=== PATIENT | male | born 1950 | race Caucasian/White ===

== ENCOUNTER 2017-12-29 14:51 | Inpatient (IN) | payer MEDICARE, BC ==
[2017-12-29 15:57] LABS: ADD MAN DIFF? NO
[2017-12-29 16:01] LABS: WHITE BLOOD COUNT 14.3 10^3/ul (4.8-10.8)
[2017-12-29 16:01] LABS: BASOPHILS % 0.2 % (0.0-2.0); EOSINOPHILS % 0.3 % (0.0-7.0); HEMATOCRIT 29.8 % (42.0-52.0); HEMOGLOBIN 10.1 g/dl (14.0-18.0); LYMPHOCYTES # 0.4 10^3/ul (0.8-2.9); LYMPHOCYTES % 3.1 % (15.0-51.0); MEAN CORPUSCULAR HEMOGLOBIN 29.2 pg (29.0-33.0); MEAN CORPUSCULAR HGB CONC 33.9 g/dl (32.0-37.0); MEAN CORPUSCULAR VOLUME 86.1 fl (82.0-101.0); MONOCYTE # 0.8 10^3/ul (0.3-0.9); MONOCYTES % 5.2 % (0.0-11.0); NEUTROPHILS % 90.6 % (39.0-77.0); PLATELET COUNT 217 10^3/UL (140-415); RED BLOOD COUNT 3.46 10^6/ul (4.70-6.10); RED CELL DISTRIBUTION WIDTH 13.9 % (11.5-14.5)
[2017-12-29] MEDS: SODIUM CHLORIDE 0.9% 1L BAG IV* (16:04)
[2017-12-29 16:23] LABS: INR 1.13; PROTIME 14.7 Sec (11.9-14.9); PT RATIO 1.1
[2017-12-29 16:24] LABS: PARTIAL THROMBOPLASTIN TIME 40.1 Sec (25.0-35.0)
[2017-12-29 16:25] LABS: LACTIC ACID 1.4 mmol/L (0.5-2.0)
[2017-12-29 16:29] LABS: ALANINE AMINOTRANSFERASE 21 IU/L (13-69); ALBUMIN 3.7 g/dl (3.3-4.9); ALBUMIN/GLOBULIN RATIO 1.05; ALKALINE PHOSPHATASE 72 IU/L (42-121); AMYLASE 60 U/L (11-123); ANION GAP 23 (8-16); ASPARTATE AMINO TRANSFERASE 14 IU/L (15-46); BLOOD UREA NITROGEN 59 mg/dl (7-20); CALCIUM 9.1 mg/dl (8.4-10.2); CARBON DIOXIDE 19 mmol/L (21-31); CHLORIDE 92 mmol/L (97-110); CREATININE 4.69 mg/dl (0.61-1.24); GLUCOSE 109 mg/dl (70-220); LIPASE 31 U/L (23-300); POTASSIUM 5.2 mmol/L (3.5-5.1); SODIUM 129 mmol/L (135-144); TOTAL PROTEIN 7.2 g/dl (6.1-8.1)
[2017-12-29 16:37] LABS: B-TYPE NATRIURETIC PEPTIDE 1240 PG/ML (0-125); TROPONIN-I 0.014 ng/ml (0.00-0.12)
[2017-12-29 16:44] LABS: ADD UMIC YES; UR ASCORBIC ACID NEGATIVE (NEGATIVE); UR BACTERIA FEW /HPF (NONE SEEN); UR BILIRUBIN (Dip) NEGATIVE (NEGATIVE); UR BLOOD (Dip) NEGATIVE (NEGATIVE); UR CLARITY TURBID (CLEAR); UR COLOR YELLOW (YELLOW); UR GLUCOSE (Dip) NEGATIVE (NEGATIVE); UR KETONES (Dip) NEGATIVE (NEGATIVE); UR LEUKOCYTE ESTERASE (Dip) 1+ Leu/ul (NEGATIVE); UR NITRITE (Dip) POSITIVE (NEGATIVE); UR RBC 4 /HPF (0-5); UR SPECIFIC GRAVITY (Dip) 1.015 (1.003-1.030); UR TOTAL PROTEIN (Dip) 3+ mg/dl (NEGATIVE); UR UROBILINOGEN (Dip) NEGATIVE (NEGATIVE); UR WBC 1 /HPF (0-5)
[2017-12-29] MEDS: ACETAMINOPHEN 500 MG TAB PO (17:27)
[2017-12-29] MEDS: CA CHLORIDE 10% 10 ML SYRINGE IV (17:30)
[2017-12-29] MEDS ORDERED: ONDANSETRON 4 MG INJ IV (17:30)
[2017-12-29] MEDS: PIPER-TAZO 3.375 GM IV (PMX) 100 ML IVPB (17:31)
[2017-12-29] MEDS: NA BICARBONATE 8.4% 50 ML SYG IV (17:32)
[2017-12-29] MEDS: FUROSEMIDE 40 MG INJ IV (17:32)
[2017-12-29] MEDS: VANCOMYCIN 1 GM (PMX) 250 ML IVPB (18:22)
[2017-12-29] MEDS: ALBUTEROL 0.5% (NEB) 2.5 MG/0.5 ML AMP INH (18:52)
[2017-12-29] MEDS: IBUPROFEN 800 MG TAB PO ×2 (19:52→20:27)
[2017-12-29 21:45] LABS: LACTIC ACID 1.3 mmol/L (0.5-2.0)
[2017-12-29] MEDS ORDERED: PROMETHAZINE (1.25 MG/ML) 5 ML CUP PO (22:30)
[2017-12-29] MEDS ORDERED: MEROPENEM 1 GM/50ML(PMX) 50 ML IVPB (22:30)
[2017-12-29] MEDS ORDERED: ACETAMINOPHEN 325 MG TAB PO (22:30)
[2017-12-29] MEDS ORDERED: CEPASTAT LOZENGE MM (22:30)
[2017-12-29] MEDS: SOD CHLORIDE 0.9% 1,000 ML IV (22:58)
[2017-12-29] MEDS: MEROPENEM 500MG/50 ML (PMX) 50 ML IVPB (22:58)
[2017-12-29] MEDS: LEVALBUTEROL (NEB) 1.25 MG/0.5 ML AMP HHN (23:05)
[2017-12-30] MEDS: LEVALBUTEROL (NEB) 1.25 MG/0.5 ML AMP HHN ×4 (02:33→21:00)
[2017-12-30 07:34] LABS: ADD MAN DIFF? NO
[2017-12-30 07:52] LABS: WHITE BLOOD COUNT 11.8 10^3/ul (4.8-10.8)
[2017-12-30 07:52] LABS: ABNORMAL IP MESSAGE 1; BASOPHILS % 0.2 % (0.0-2.0); EOSINOPHILS # 0.2 10^3/ul (0.0-0.5); EOSINOPHILS % 1.4 % (0.0-7.0); HEMATOCRIT 28.3 % (42.0-52.0); HEMOGLOBIN 9.6 g/dl (14.0-18.0); LYMPHOCYTES # 0.5 10^3/ul (0.8-2.9); LYMPHOCYTES % 4.1 % (15.0-51.0); MEAN CORPUSCULAR HEMOGLOBIN 29.6 pg (29.0-33.0); MEAN CORPUSCULAR HGB CONC 33.9 g/dl (32.0-37.0); MEAN CORPUSCULAR VOLUME 87.3 fl (82.0-101.0); MEAN PLATELET VOLUME 12.8 fl (7.4-10.4); MONOCYTE # 0.7 10^3/ul (0.3-0.9); NEUTROPHIL # 10.4 10^3/ul (1.6-7.5); NEUTROPHILS % 87.8 % (39.0-77.0); PLATELET COUNT 183 10^3/UL (140-415); POSITIVE DIFF @See below; RED BLOOD COUNT 3.24 10^6/ul (4.70-6.10); RED CELL DISTRIBUTION WIDTH 13.9 % (11.5-14.5)
[2017-12-30 08:06] LABS: ANION GAP 18 (8-16); BLOOD UREA NITROGEN 55 mg/dl (7-20); CALCIUM 9.6 mg/dl (8.4-10.2); CARBON DIOXIDE 23 mmol/L (21-31); CHLORIDE 104 mmol/L (97-110); CREATININE 2.97 mg/dl (0.61-1.24); GLUCOSE 92 mg/dl (70-220); SODIUM 141 mmol/L (135-144)
[2017-12-30] MEDS: ACETAMINOPHEN 325 MG TAB PO (09:16)
[2017-12-30] MEDS: ENOXAPARIN 30 MG/0.3 ML SYG SC (09:20)
[2017-12-30] MEDS ORDERED: hydrALAzine 20 MG INJ IV (12:30)
[2017-12-30] MEDS: SOD CHLORIDE 0.9% 1,000 ML IV (13:44)
[2017-12-30] MEDS: PROMETHAZINE/CODEINE 5ML CUP PO ×3 (13:47→23:46)
[2017-12-30 15:51] LABS: ADD UMIC YES; UR ASCORBIC ACID 40 mg/dL (NEGATIVE); UR BILIRUBIN (Dip) NEGATIVE (NEGATIVE); UR BLOOD (Dip) 2+ mg/dL (NEGATIVE); UR CLARITY CLOUDY (CLEAR); UR COLOR RED (YELLOW); UR GLUCOSE (Dip) NEGATIVE (NEGATIVE); UR KETONES (Dip) NEGATIVE (NEGATIVE); UR LEUKOCYTE ESTERASE (Dip) 2+ Leu/ul (NEGATIVE); UR MUCUS FEW /HPF (NONE SEEN); UR NITRITE (Dip) NEGATIVE (NEGATIVE); UR RBC > 182 /HPF (0-5); UR SPECIFIC GRAVITY (Dip) 1.014 (1.003-1.030); UR TOTAL PROTEIN (Dip) 2+ mg/dl (NEGATIVE); UR UROBILINOGEN (Dip) NEGATIVE (NEGATIVE); UR WBC > 182 /HPF (0-5)
[2017-12-30 16:00] LABS: SODIUM,URINE RANDOM 33 mmol/L (30-90)
[2017-12-30 16:05] LABS: CREATININE,URINE RANDOM 67.21 mg/dl (20-370)
[2017-12-30] MEDS: MEROPENEM 500MG/50 ML (PMX) 50 ML IVPB (23:04)
[2017-12-31] MEDS: SOD CHLORIDE 0.9% 1,000 ML IV ×2 (01:10→07:54)
[2017-12-31] MEDS: LEVALBUTEROL (NEB) 1.25 MG/0.5 ML AMP HHN ×4 (02:09→20:00)
[2017-12-31] MEDS: ALPRAZOLAM 0.25 MG TAB PO ×2 (04:26→22:59)
[2017-12-31] MEDS: HYDROCODONE/APAP (5/325) TAB PO ×2 (04:32→16:28)
[2017-12-31] MEDS: DILTIAZEM 25 MG INJ IV ×3 (05:33→07:54)
[2017-12-31] MEDS: PROMETHAZINE/CODEINE 5ML CUP PO ×2 (06:49→12:40)
[2017-12-31] MEDS: ENOXAPARIN 30 MG/0.3 ML SYG SC (08:00)
[2017-12-31 08:18] LABS: ADD MAN DIFF? NO
[2017-12-31 08:21] LABS: WHITE BLOOD COUNT 8.3 10^3/ul (4.8-10.8)
[2017-12-31 08:21] LABS: BASOPHILS % 0.5 % (0.0-2.0); EOSINOPHILS # 0.5 10^3/ul (0.0-0.5); EOSINOPHILS % 6.2 % (0.0-7.0); HEMATOCRIT 28.8 % (42.0-52.0); HEMOGLOBIN 9.9 g/dl (14.0-18.0); LYMPHOCYTES # 1.1 10^3/ul (0.8-2.9); LYMPHOCYTES % 13.3 % (15.0-51.0); MEAN CORPUSCULAR HEMOGLOBIN 29.5 pg (29.0-33.0); MEAN CORPUSCULAR HGB CONC 34.4 g/dl (32.0-37.0); MEAN CORPUSCULAR VOLUME 85.7 fl (82.0-101.0); MEAN PLATELET VOLUME 12.1 fl (7.4-10.4); MONOCYTE # 0.6 10^3/ul (0.3-0.9); MONOCYTES % 7.3 % (0.0-11.0); NEUTROPHILS % 72.2 % (39.0-77.0); PLATELET COUNT 225 10^3/UL (140-415); RED BLOOD COUNT 3.36 10^6/ul (4.70-6.10); RED CELL DISTRIBUTION WIDTH 13.8 % (11.5-14.5)
[2017-12-31 08:47] LABS: ANION GAP 16 (8-16); BLOOD UREA NITROGEN 21 mg/dl (7-20); CALCIUM 9.6 mg/dl (8.4-10.2); CARBON DIOXIDE 25 mmol/L (21-31); CHLORIDE 110 mmol/L (97-110); CREATININE 0.76 mg/dl (0.61-1.24); GLUCOSE 97 mg/dl (70-220); MAGNESIUM 1.8 mg/dl (1.7-2.5); PHOSPHORUS 2.7 mg/dl (2.5-4.9); POTASSIUM 3.2 mmol/L (3.5-5.1); SODIUM 148 mmol/L (135-144)
[2017-12-31] MEDS: DIGOXIN 500 MCG INJ IV (10:47)
[2017-12-31] MEDS: PIPER-TAZO 3.375 GM IV (PMX) 100 ML IVPB ×3 (11:16→23:46)
[2017-12-31] MEDS: POTASSIUM CHLORIDE (SR) 20 MEQ TAB PO (11:59)
[2017-12-31] MEDS: MAGNESIUM SULFATE 2 GM/50 ML 50 ML IVPB (12:41)
[2017-12-31] MEDS: ARTIFICIAL TEARS 15 ML OPH BOTH EYES ×3 (13:53→21:49)
[2017-12-31] MEDS: AMIODARONE 900 MG in DEXTROSE 5% 482 ML IV (14:16)
[2017-12-31 17:31] LABS: CREATININE, RANDOM URINE 84 mg/dL (20-370); MICROALBUMIN 87.3 mg/dL; MICROALBUMIN/CREATININE RATIO 1039 (<30)
[2017-12-31] MEDS: APIXABAN 5 MG TABLET PO (21:49)
[2017-12-31] MEDS: POTASSIUM CHLORIDE 20 MEQ POWDER FOR ORAL SOLN PO (21:50)
[2018-01-01] MEDS: PROMETHAZINE/CODEINE 5ML CUP PO (01:46)
[2018-01-01] MEDS: LEVALBUTEROL (NEB) 1.25 MG/0.5 ML AMP HHN ×4 (01:58→20:32)
[2018-01-01] MEDS: SOD CHLORIDE 0.9% 1,000 ML IV (03:04)
[2018-01-01] MEDS: PIPER-TAZO 3.375 GM IV (PMX) 100 ML IVPB ×4 (06:23→23:29)
[2018-01-01 08:31] LABS: ADD MAN DIFF? NO
[2018-01-01 08:38] LABS: BASOPHILS % 0.4 % (0.0-2.0); EOSINOPHILS # 0.9 10^3/ul (0.0-0.5); HEMATOCRIT 27.9 % (42.0-52.0); HEMOGLOBIN 9.2 g/dl (14.0-18.0); LYMPHOCYTES % 11.7 % (15.0-51.0); MEAN CORPUSCULAR HEMOGLOBIN 29.3 pg (29.0-33.0); MEAN CORPUSCULAR VOLUME 88.9 fl (82.0-101.0); MEAN PLATELET VOLUME 12.2 fl (7.4-10.4); MONOCYTE # 0.4 10^3/ul (0.3-0.9); MONOCYTES % 5.3 % (0.0-11.0); NEUTROPHIL # 5.9 10^3/ul (1.6-7.5); NEUTROPHILS % 71.2 % (39.0-77.0); PLATELET COUNT 233 10^3/UL (140-415); RED BLOOD COUNT 3.14 10^6/ul (4.70-6.10); RED CELL DISTRIBUTION WIDTH 14.1 % (11.5-14.5)
[2018-01-01 08:38] LABS: WHITE BLOOD COUNT 8.2 10^3/ul (4.8-10.8)
[2018-01-01 08:55] LABS: ANION GAP 16 (8-16); BLOOD UREA NITROGEN 14 mg/dl (7-20); CALCIUM 9.4 mg/dl (8.4-10.2); CARBON DIOXIDE 24 mmol/L (21-31); CHLORIDE 110 mmol/L (97-110); CREATININE 0.62 mg/dl (0.61-1.24); GLUCOSE 97 mg/dl (70-220); MAGNESIUM 1.9 mg/dl (1.7-2.5); PHOSPHORUS 3.6 mg/dl (2.5-4.9); POTASSIUM 3.9 mmol/L (3.5-5.1); SODIUM 146 mmol/L (135-144)
[2018-01-01] MEDS: APIXABAN 5 MG TABLET PO ×2 (09:02→21:28)
[2018-01-01] MEDS: ARTIFICIAL TEARS 15 ML OPH BOTH EYES ×5 (09:02→23:27)
[2018-01-01] MEDS: SOD CHLORIDE 0.45% 1,000 ML IV (09:03)
[2018-01-01] MEDS ORDERED: DEXTROSE 5% 1,000 ML IV (09:30)
[2018-01-01] MEDS: hydrALAzine 20 MG INJ IV ×2 (12:15→23:44)
[2018-01-01] MEDS: HYDROCODONE/APAP (5/325) TAB PO (16:17)
[2018-01-01] MEDS ORDERED: POLYETHYLENE GLYCOL 17 GM PACKET PO (17:30)
[2018-01-01] MEDS: DOCUSATE SODIUM 100 MG CAP PO (21:28)
[2018-01-01] MEDS: AMIODARONE 200 MG TAB PO (21:33)
[2018-01-01] MEDS: ALPRAZOLAM 0.25 MG TAB PO (21:38)
[2018-01-01] MEDS ORDERED: VANCOMYCIN IV PER PHARMACY XX (22:00)
[2018-01-01] MEDS: VANCOMYCIN 1.75 GM in SOD CHLORIDE 0.9% 500 ML IVPB (23:26)
[2018-01-02] MEDS: SOD CHLORIDE 0.45% 1,000 ML IV ×2 (01:40→17:23)
[2018-01-02] MEDS: LEVALBUTEROL (NEB) 1.25 MG/0.5 ML AMP HHN ×4 (02:19→20:23)
[2018-01-02] MEDS: DIGOXIN 500 MCG INJ IV (03:18)
[2018-01-02] MEDS: MAGNESIUM SULFATE 2 GM/50 ML 50 ML IVPB (03:19)
[2018-01-02] MEDS: PIPER-TAZO 3.375 GM IV (PMX) 100 ML IVPB ×3 (06:19→17:23)
[2018-01-02 08:25] LABS: ADD MAN DIFF? NO
[2018-01-02 08:27] LABS: BASOPHIL # 0.1 10^3/ul (0.0-0.1); BASOPHILS % 0.5 % (0.0-2.0); EOSINOPHILS # 0.7 10^3/ul (0.0-0.5); EOSINOPHILS % 6.9 % (0.0-7.0); HEMOGLOBIN 10.4 g/dl (14.0-18.0); LYMPHOCYTES # 1.1 10^3/ul (0.8-2.9); LYMPHOCYTES % 11.2 % (15.0-51.0); MEAN CORPUSCULAR HEMOGLOBIN 29.5 pg (29.0-33.0); MEAN CORPUSCULAR HGB CONC 33.5 g/dl (32.0-37.0); MEAN CORPUSCULAR VOLUME 88.1 fl (82.0-101.0); MEAN PLATELET VOLUME 11.8 fl (7.4-10.4); MONOCYTE # 0.7 10^3/ul (0.3-0.9); NEUTROPHIL # 7.3 10^3/ul (1.6-7.5); NEUTROPHILS % 73.7 % (39.0-77.0); PLATELET COUNT 301 10^3/UL (140-415); RED BLOOD COUNT 3.52 10^6/ul (4.70-6.10)
[2018-01-02 08:27] LABS: WHITE BLOOD COUNT 9.9 10^3/ul (4.8-10.8)
[2018-01-02] MEDS: DOCUSATE SODIUM 100 MG CAP PO ×2 (09:05→21:14)
[2018-01-02] MEDS: ARTIFICIAL TEARS 15 ML OPH BOTH EYES ×4 (09:05→21:10)
[2018-01-02] MEDS: AMIODARONE 200 MG TAB PO ×2 (09:06→21:16)
[2018-01-02] MEDS: APIXABAN 5 MG TABLET PO ×2 (09:06→21:15)
[2018-01-02] MEDS: VANCOMYCIN 1.25 GM in SOD CHLORIDE 0.9% 250 ML IVPB ×2 (09:09→21:14)
[2018-01-02 09:10] LABS: ANION GAP 17 (8-16); BLOOD UREA NITROGEN 6 mg/dl (7-20); CALCIUM 9.3 mg/dl (8.4-10.2); CARBON DIOXIDE 23 mmol/L (21-31); CHLORIDE 108 mmol/L (97-110); CREATININE 0.56 mg/dl (0.61-1.24); GLUCOSE 93 mg/dl (70-220); MAGNESIUM 2.2 mg/dl (1.7-2.5); PHOSPHORUS 3.9 mg/dl (2.5-4.9); POTASSIUM 3.7 mmol/L (3.5-5.1); SODIUM 144 mmol/L (135-144)
[2018-01-02] MEDS: METOPROLOL 25 MG TAB PO ×3 (17:23→23:07)
[2018-01-02] MEDS: CIPROFLOXACIN 400MG/D5W 200 ML IVPB (21:14)
[2018-01-02] MEDS: CEFTRIAXONE 1 GM/50 ML (PMX) 50 ML IVPB (23:15)
[2018-01-03] MEDS: LEVALBUTEROL (NEB) 1.25 MG/0.5 ML AMP HHN ×4 (01:26→20:10)
[2018-01-03] MEDS: AMIODARONE 200 MG TAB PO ×2 (08:12→22:52)
[2018-01-03] MEDS: METOPROLOL 25 MG TAB PO (08:13)
[2018-01-03] MEDS: APIXABAN 5 MG TABLET PO ×2 (08:13→22:52)
[2018-01-03] MEDS: CIPROFLOXACIN 400MG/D5W 200 ML IVPB ×2 (08:14→22:50)
[2018-01-03] MEDS: DOCUSATE SODIUM 100 MG CAP PO ×2 (08:18→22:51)
[2018-01-03] MEDS: ARTIFICIAL TEARS 15 ML OPH BOTH EYES ×4 (08:19→22:52)
[2018-01-03 08:56] LABS: ANION GAP 16 (8-16); BLOOD UREA NITROGEN 5 mg/dl (7-20); CALCIUM 9.3 mg/dl (8.4-10.2); CARBON DIOXIDE 23 mmol/L (21-31); CHLORIDE 108 mmol/L (97-110); CREATININE 0.61 mg/dl (0.61-1.24); GLUCOSE 91 mg/dl (70-220); MAGNESIUM 1.7 mg/dl (1.7-2.5); PHOSPHORUS 4.2 mg/dl (2.5-4.9); POTASSIUM 3.5 mmol/L (3.5-5.1); SODIUM 143 mmol/L (135-144)
[2018-01-03 09:07] LABS: VANCOMYCIN,TROUGH 19.8 ug/ml (10.0-20.0)
[2018-01-03] MEDS: SOD CHLORIDE 0.45% 1,000 ML IV ×2 (12:55→22:50)
[2018-01-03] MEDS: hydrALAzine 20 MG INJ IV (12:57)
[2018-01-03] MEDS: POTASSIUM CHLORIDE 20 MEQ POWDER FOR ORAL SOLN PO (13:33)
[2018-01-03] MEDS: MAGNESIUM SULFATE 2 GM/50 ML 50 ML IVPB (13:33)
[2018-01-03] MEDS: HYDROCODONE/APAP (5/325) TAB PO (18:14)
[2018-01-03] MEDS ORDERED: METOPROLOL 25 MG TAB PO (21:00)
[2018-01-03] MEDS: METOPROLOL 50 MG TAB PO (22:51)
[2018-01-04] MEDS: CEFTRIAXONE 1 GM/50 ML (PMX) 50 ML IVPB ×2 (00:41→22:46)
[2018-01-04] MEDS: LEVALBUTEROL (NEB) 1.25 MG/0.5 ML AMP HHN (02:17)
[2018-01-04] MEDS: HYDROCODONE/APAP (5/325) TAB PO ×2 (05:04→14:52)
[2018-01-04] MEDS: hydrALAzine 20 MG INJ IV (05:04)
[2018-01-04 06:44] LABS: ADD MAN DIFF? NO
[2018-01-04 06:47] LABS: WHITE BLOOD COUNT 10.5 10^3/ul (4.8-10.8)
[2018-01-04 06:47] LABS: BASOPHILS % 0.3 % (0.0-2.0); EOSINOPHILS # 0.5 10^3/ul (0.0-0.5); EOSINOPHILS % 4.4 % (0.0-7.0); HEMATOCRIT 29.7 % (42.0-52.0); HEMOGLOBIN 9.8 g/dl (14.0-18.0); LYMPHOCYTES # 1.3 10^3/ul (0.8-2.9); LYMPHOCYTES % 12.3 % (15.0-51.0); MEAN CORPUSCULAR HEMOGLOBIN 29.3 pg (29.0-33.0); MEAN CORPUSCULAR VOLUME 88.7 fl (82.0-101.0); MEAN PLATELET VOLUME 11.4 fl (7.4-10.4); MONOCYTE # 0.7 10^3/ul (0.3-0.9); MONOCYTES % 6.3 % (0.0-11.0); NEUTROPHIL # 7.9 10^3/ul (1.6-7.5); NEUTROPHILS % 75.8 % (39.0-77.0); PLATELET COUNT 326 10^3/UL (140-415); RED BLOOD COUNT 3.35 10^6/ul (4.70-6.10)
[2018-01-04 07:19] LABS: ANION GAP 17 (8-16); BLOOD UREA NITROGEN 5 mg/dl (7-20); CALCIUM 9.3 mg/dl (8.4-10.2); CARBON DIOXIDE 23 mmol/L (21-31); CHLORIDE 108 mmol/L (97-110); CREATININE 0.58 mg/dl (0.61-1.24); GLUCOSE 96 mg/dl (70-220); POTASSIUM 3.7 mmol/L (3.5-5.1); SODIUM 144 mmol/L (135-144)
[2018-01-04 08:28] LABS: MAGNESIUM 1.9 mg/dl (1.7-2.5)
[2018-01-04] MEDS: LEVALBUTEROL (NEB) 0.63 MG/3 ML AMP HHN ×3 (08:28→19:12)
[2018-01-04] MEDS: DOCUSATE SODIUM 100 MG CAP PO ×2 (09:59→21:22)
[2018-01-04] MEDS: METOPROLOL 50 MG TAB PO ×2 (10:00→21:23)
[2018-01-04] MEDS: AMIODARONE 200 MG TAB PO ×2 (10:00→21:23)
[2018-01-04] MEDS: APIXABAN 5 MG TABLET PO ×2 (10:01→21:23)
[2018-01-04] MEDS: ARTIFICIAL TEARS 15 ML OPH BOTH EYES ×4 (10:01→21:21)
[2018-01-04] MEDS: CIPROFLOXACIN 400MG/D5W 200 ML IVPB ×2 (10:01→21:18)
[2018-01-04] MEDS: ALPRAZOLAM 0.25 MG TAB PO (14:53)
[2018-01-04] MEDS: MAGNESIUM SULFATE 2 GM/50 ML 50 ML IVPB (16:54)
[2018-01-04] MEDS: POTASSIUM CHLORIDE 20 MEQ POWDER FOR ORAL SOLN PO (16:55)
[2018-01-05] MEDS: LEVALBUTEROL (NEB) 0.63 MG/3 ML AMP HHN ×4 (01:05→20:06)
[2018-01-05 07:55] LABS: CHOLESTEROL 137 mg/dl (100-200)
[2018-01-05 07:55] LABS: CHOL/HDL RATIO 5.4 RATIO; HDL CHOLESTEROL 25 mg/dl (30-78); LDL CHOLESTEROL,CALCULATED 84 mg/dl; TRIGLYCERIDES 142 mg/dl (0-149)
[2018-01-05] MEDS: DOCUSATE SODIUM 100 MG CAP PO ×3 (09:00→20:44)
[2018-01-05] MEDS: DULOXETINE 30 MG CAP DR PO (09:08)
[2018-01-05] MEDS: ARTIFICIAL TEARS 15 ML OPH BOTH EYES ×4 (09:08→21:01)
[2018-01-05] MEDS: CIPROFLOXACIN 400MG/D5W 200 ML IVPB ×2 (09:08→20:44)
[2018-01-05] MEDS: APIXABAN 5 MG TABLET PO ×2 (09:08→20:44)
[2018-01-05] MEDS: AMIODARONE 200 MG TAB PO (09:09)
[2018-01-05] MEDS: METOPROLOL 50 MG TAB PO ×2 (09:09→20:45)
[2018-01-05] MEDS: HYDROCODONE/APAP (5/325) TAB PO ×2 (09:11→17:21)
[2018-01-05] MEDS: CEFTRIAXONE 1 GM/50 ML (PMX) 50 ML IVPB (23:41)
[2018-01-06] MEDS: LEVALBUTEROL (NEB) 0.63 MG/3 ML AMP HHN ×4 (02:00→20:12)
[2018-01-06] MEDS: ARTIFICIAL TEARS 15 ML OPH BOTH EYES ×4 (08:04→22:01)
[2018-01-06] MEDS: DOCUSATE SODIUM 100 MG CAP PO ×2 (08:05→22:00)
[2018-01-06] MEDS: DULOXETINE 30 MG CAP DR PO (08:05)
[2018-01-06] MEDS: APIXABAN 5 MG TABLET PO ×2 (08:05→22:08)
[2018-01-06] MEDS: METOPROLOL 50 MG TAB PO ×2 (08:06→22:07)
[2018-01-06] MEDS: AMIODARONE 200 MG TAB PO (08:06)
[2018-01-06] MEDS: hydrALAzine 20 MG INJ IV ×2 (08:06→22:08)
[2018-01-06] MEDS: CIPROFLOXACIN 400MG/D5W 200 ML IVPB ×2 (08:06→22:00)
[2018-01-06] MEDS: HYDROCODONE/APAP (5/325) TAB PO (10:31)
[2018-01-06 12:34] LABS: ANION GAP 18 (8-16); BLOOD UREA NITROGEN 8 mg/dl (7-20); CARBON DIOXIDE 19 mmol/L (21-31); CHLORIDE 107 mmol/L (97-110); CREATININE 0.59 mg/dl (0.61-1.24); GLUCOSE 99 mg/dl (70-220); POTASSIUM 4.1 mmol/L (3.5-5.1); SODIUM 140 mmol/L (135-144)
[2018-01-06] MEDS: ATORVASTATIN 10 MG TAB PO (22:00)
[2018-01-06] MEDS: CEFTRIAXONE 1 GM/50 ML (PMX) 50 ML IVPB (23:45)
[2018-01-07] MEDS: LEVALBUTEROL (NEB) 0.63 MG/3 ML AMP HHN ×3 (02:09→14:00)
[2018-01-07] MEDS: HYDROCODONE/APAP (5/325) TAB PO ×2 (05:40→15:40)
[2018-01-07] MEDS: DULOXETINE 30 MG CAP DR PO (09:21)
[2018-01-07] MEDS: AMIODARONE 200 MG TAB PO (09:22)
[2018-01-07] MEDS: APIXABAN 5 MG TABLET PO (09:22)
[2018-01-07] MEDS: CIPROFLOXACIN 400MG/D5W 200 ML IVPB (09:22)
[2018-01-07] MEDS: METOPROLOL 50 MG TAB PO (09:23)
[2018-01-07] MEDS: DOCUSATE SODIUM 100 MG CAP PO (09:23)
[2018-01-07] MEDS: ARTIFICIAL TEARS 15 ML OPH BOTH EYES ×3 (09:23→17:46)
[2018-01-07] MEDS: CIPROFLOXACIN 500 MG TAB PO (17:46)
== END 2018-01-07 19:54 | DRG 871 ==
LOC: TEL 17:22 → E/R 14:51 → TEL 23:58 → E/R 14:51
DX: A41.9 Sepsis, unspecified organism (principal); G82.50 Quadriplegia, unspecified; J18.9 Pneumonia, unspecified organism; N17.9 Acute kidney failure, unspecified; E87.2 Acidosis; J96.10 Chronic respiratory failure, unspecified whether with hypoxia or hypercapnia; E87.1 Hypo-osmolality and hyponatremia; N39.0 Urinary tract infection, site not specified; E87.0 Hyperosmolality and hypernatremia; R47.01 Aphasia; G45.9 Transient cerebral ischemic attack, unspecified; J20.9 Acute bronchitis, unspecified; I48.0 Paroxysmal atrial fibrillation; I10 Essential (primary) hypertension; L89.629 Pressure ulcer of left heel, unspecified stage; F41.9 Anxiety disorder, unspecified; F32.9 Major depressive disorder, single episode, unspecified; Z93.0 Tracheostomy status
CPT/HCPCS: 70551; 71045; 76775; 80048; 80053; 80061; 80202; 81001; 81003; 82043; 82150; 83605; 83690; 83735; 83880; 84100; 84155; 84300; 84443; 84484; 85025; 85610; 85730; 87040; 87070; 87081; 87086; 87400; 89190; 89220; 93005; 93306; 93880; 93971; 94640; 94644; 94664; 95819; 96365; 96366; 96367; 96368; 96375; 97110; 97163; 97530; 99291-25

== ENCOUNTER 2018-10-30 20:23 | Inpatient (IN) | payer MEDICARE, BC ==
[2018-10-30] MEDS: CEFEPIME 2GM/50 ML (PMX) 50 ML IVPB (21:15)
[2018-10-30] MEDS: SODIUM CHLORIDE 0.9% 1L BAG IV* (21:15)
[2018-10-30 21:29] LABS: ADD MAN DIFF? NO
[2018-10-30 21:33] LABS: WHITE BLOOD COUNT 15.7 10^3/ul (4.8-10.8)
[2018-10-30 21:33] LABS: BASOPHIL # 0.1 10^3/ul (0.0-0.1); BASOPHILS % 0.4 % (0.0-2.0); EOSINOPHILS % 6.5 % (0.0-7.0); HEMATOCRIT 35.6 % (42.0-52.0); HEMOGLOBIN 11.7 g/dl (14.0-18.0); LYMPHOCYTES # 1.9 10^3/ul (0.8-2.9); LYMPHOCYTES % 12.1 % (15.0-51.0); MEAN CORPUSCULAR HEMOGLOBIN 28.3 pg (29.0-33.0); MEAN CORPUSCULAR HGB CONC 32.9 g/dl (32.0-37.0); MEAN CORPUSCULAR VOLUME 86.2 fl (82.0-101.0); MEAN PLATELET VOLUME 11.7 fl (7.4-10.4); MONOCYTE # 1.2 10^3/ul (0.3-0.9); MONOCYTES % 7.7 % (0.0-11.0); NEUTROPHIL # 11.4 10^3/ul (1.6-7.5); NEUTROPHILS % 72.8 % (39.0-77.0); PLATELET COUNT 341 10^3/UL (140-415); RED BLOOD COUNT 4.13 10^6/ul (4.70-6.10); RED CELL DISTRIBUTION WIDTH 14.1 % (11.5-14.5)
[2018-10-30 21:49] LABS: PROTIME 12.3 Sec (11.9-14.9)
[2018-10-30 21:50] LABS: PARTIAL THROMBOPLASTIN TIME 34.6 Sec (23.0-35.0)
[2018-10-30 21:53] LABS: ALANINE AMINOTRANSFERASE 10 IU/L (13-69); ALBUMIN 4.1 g/dl (3.3-4.9); ALBUMIN/GLOBULIN RATIO 1.17; ALKALINE PHOSPHATASE 77 IU/L (42-121); ANION GAP 17 (5-13); ASPARTATE AMINO TRANSFERASE 18 IU/L (15-46); BLOOD UREA NITROGEN 15 mg/dl (7-20); CALCIUM 9.5 mg/dl (8.4-10.2); CARBON DIOXIDE 27 mmol/L (21-31); CHLORIDE 92 mmol/L (97-110); CREATININE 0.69 mg/dl (0.61-1.24); Estimated GFR > 60 mL/min (>60); GLUCOSE 83 mg/dl (70-220); POTASSIUM 4.1 mmol/L (3.5-5.1); SODIUM 136 mmol/L (135-144); TOTAL PROTEIN 7.6 g/dl (6.1-8.1)
[2018-10-30 22:04] LABS: TROPONIN-I 0.036 ng/ml (0.000-0.120)
[2018-10-30] MEDS: SOD CHLORIDE 0.9% 1,000 ML IV ×2 (22:52→22:58)
[2018-10-30] MEDS ORDERED: ACETAMINOPHEN 325 MG TAB PO (23:00)
[2018-10-30] MEDS ORDERED: morphine 2 MG INJ IV (23:00)
[2018-10-30] MEDS ORDERED: NACL 0.9% 3 ML SYG IV (23:00)
[2018-10-30] MEDS ORDERED: ONDANSETRON 4 MG INJ IV (23:00)
[2018-10-31 06:06] LABS: ADD MAN DIFF? NO
[2018-10-31 06:15] LABS: BASOPHILS % 0.3 % (0.0-2.0); EOSINOPHILS # 0.4 10^3/ul (0.0-0.5); EOSINOPHILS % 3.2 % (0.0-7.0); HEMATOCRIT 30.8 % (42.0-52.0); HEMOGLOBIN 10.1 g/dl (14.0-18.0); LYMPHOCYTES # 1.1 10^3/ul (0.8-2.9); LYMPHOCYTES % 8.3 % (15.0-51.0); MEAN CORPUSCULAR HEMOGLOBIN 28.3 pg (29.0-33.0); MEAN CORPUSCULAR HGB CONC 32.8 g/dl (32.0-37.0); MEAN CORPUSCULAR VOLUME 86.3 fl (82.0-101.0); MEAN PLATELET VOLUME 12.5 fl (7.4-10.4); MONOCYTE # 0.8 10^3/ul (0.3-0.9); MONOCYTES % 6.1 % (0.0-11.0); NEUTROPHIL # 10.6 10^3/ul (1.6-7.5); NEUTROPHILS % 81.7 % (39.0-77.0); POSITIVE DIFF @See below; RED BLOOD COUNT 3.57 10^6/ul (4.70-6.10); RED CELL DISTRIBUTION WIDTH 13.9 % (11.5-14.5)
[2018-10-31 06:21] LABS: PLATELET COUNT 188 10^3/UL (140-415)
[2018-10-31 06:54] LABS: ALANINE AMINOTRANSFERASE 10 IU/L (13-69); ALBUMIN 3.2 g/dl (3.3-4.9); ALBUMIN/GLOBULIN RATIO 1.06; ALKALINE PHOSPHATASE 60 IU/L (42-121); ANION GAP 15 (5-13); ASPARTATE AMINO TRANSFERASE 20 IU/L (15-46); BLOOD UREA NITROGEN 15 mg/dl (7-20); CALCIUM 8.5 mg/dl (8.4-10.2); CARBON DIOXIDE 21 mmol/L (21-31); CHLORIDE 98 mmol/L (97-110); CREATININE 0.59 mg/dl (0.61-1.24); Estimated GFR > 60 mL/min (>60); GLUCOSE 99 mg/dl (70-220); POTASSIUM 4.5 mmol/L (3.5-5.1); SODIUM 134 mmol/L (135-144); TOTAL PROTEIN 6.2 g/dl (6.1-8.1)
[2018-10-31 07:47] LABS: HEMOGLOBIN A1C 5.2 % (0-5.9)
[2018-10-31] MEDS: FAMOTIDINE 20 MG INJ IV (09:21)
[2018-10-31] MEDS: CEFEPIME 1GM/50 ML (PMX) 50 ML IVPB ×2 (09:21→20:48)
[2018-10-31] MEDS: ENOXAPARIN 30 MG/0.3 ML SYG SC (09:42)
[2018-10-31] MEDS: SOD CHLORIDE 0.9% 1,000 ML IV ×2 (09:43→21:31)
[2018-10-31] MEDS ORDERED: ACETAMINOPHEN 325 MG TAB PO (12:30)
[2018-10-31] MEDS ORDERED: traMADol 50 MG TAB PO (14:00)
[2018-10-31] MEDS: traMADol 50 MG TAB PO (14:18)
[2018-10-31] MEDS ORDERED: BISACODYL 10 MG SUPP PR (15:00)
[2018-10-31] MEDS ORDERED: HYDROCODONE/APAP (10/325) TAB PO (15:00)
[2018-10-31] MEDS ORDERED: LEVALBUTEROL (NEB) 0.63 MG/3 ML AMP NEB (15:00)
[2018-10-31] MEDS: PROMETHAZINE (1.25 MG/ML) 5 ML CUP PO ×2 (15:46→20:53)
[2018-10-31] MEDS: ARTIFICIAL TEARS 15 ML OPH BOTH EYES ×2 (17:27→20:45)
[2018-10-31] MEDS: HYDROCODONE/APAP (10/325) TAB PO (17:28)
[2018-10-31 17:44] LABS: LACTIC ACID 2.6 mmol/L (0.5-2.0)
[2018-10-31 17:58] LABS: OSMOLALITY,URINE 254 mOsm/kg (250-1200)
[2018-10-31] MEDS: DOCUSATE SODIUM 100 MG CAP PO (20:45)
[2018-10-31] MEDS: ATORVASTATIN 10 MG TAB PO (20:45)
[2018-10-31] MEDS: FLUTICASONE 0.05% 16 GM NAS SPRAY NASAL (20:45)
[2018-10-31] MEDS: GABAPENTIN 400 MG CAP PO (20:45)
[2018-10-31] MEDS: METOPROLOL 25 MG TAB PO (20:46)
[2018-10-31] MEDS: ALPRAZOLAM 0.5 MG TAB PO (20:48)
[2018-10-31 23:08] LABS: CREATININE,URINE RANDOM 28.29 mg/dl (20-370)
[2018-10-31 23:08] LABS: SODIUM,URINE RANDOM 49 mmol/L (30-90)
[2018-10-31 23:15] LABS: ADD UMIC YES; UR ASCORBIC ACID NEGATIVE (NEGATIVE); UR BACTERIA FEW /HPF (NONE SEEN); UR BILIRUBIN (Dip) NEGATIVE (NEGATIVE); UR BLOOD (Dip) 3+ mg/dL (NEGATIVE); UR CLARITY CLEAR (CLEAR); UR COLOR RED (YELLOW); UR GLUCOSE (Dip) 1+ mg/dL (NEGATIVE); UR KETONES (Dip) NEGATIVE (NEGATIVE); UR LEUKOCYTE ESTERASE (Dip) 1+ Leu/ul (NEGATIVE); UR NITRITE (Dip) NEGATIVE (NEGATIVE); UR RBC > 182 /HPF (0-5); UR SPECIFIC GRAVITY (Dip) 1.009 (1.003-1.030); UR TOTAL PROTEIN (Dip) 2+ mg/dl (NEGATIVE); UR UROBILINOGEN (Dip) NEGATIVE (NEGATIVE); UR WBC 48 /HPF (0-5)
[2018-11-01] MEDS: DULOXETINE 30 MG CAP DR PO (08:37)
[2018-11-01] MEDS: MULTIVITAMINS THERAPEUTIC TAB PO (08:37)
[2018-11-01] MEDS: FAMOTIDINE 20 MG TAB PO (08:37)
[2018-11-01] MEDS: CEFEPIME 1GM/50 ML (PMX) 50 ML IVPB ×2 (08:37→20:25)
[2018-11-01] MEDS: DOCUSATE SODIUM 100 MG CAP PO ×2 (08:37→20:24)
[2018-11-01] MEDS: AMIODARONE 200 MG TAB PO (08:38)
[2018-11-01] MEDS: GABAPENTIN 400 MG CAP PO ×3 (08:38→20:25)
[2018-11-01] MEDS: METOPROLOL 25 MG TAB PO ×2 (08:38→20:25)
[2018-11-01] MEDS: ARTIFICIAL TEARS 15 ML OPH BOTH EYES ×4 (08:39→20:24)
[2018-11-01 08:44] LABS: ADD MAN DIFF? NO
[2018-11-01 08:50] LABS: BASOPHILS % 0.3 % (0.0-2.0); EOSINOPHILS # 0.6 10^3/ul (0.0-0.5); HEMATOCRIT 24.9 % (42.0-52.0); HEMOGLOBIN 8.1 g/dl (14.0-18.0); LYMPHOCYTES # 0.9 10^3/ul (0.8-2.9); LYMPHOCYTES % 10.3 % (15.0-51.0); MEAN CORPUSCULAR HEMOGLOBIN 28.1 pg (29.0-33.0); MEAN CORPUSCULAR HGB CONC 32.5 g/dl (32.0-37.0); MEAN CORPUSCULAR VOLUME 86.5 fl (82.0-101.0); MONOCYTE # 0.6 10^3/ul (0.3-0.9); MONOCYTES % 6.5 % (0.0-11.0); NEUTROPHILS % 76.5 % (39.0-77.0); PLATELET COUNT 197 10^3/UL (140-415); RED BLOOD COUNT 2.88 10^6/ul (4.70-6.10); RED CELL DISTRIBUTION WIDTH 14.2 % (11.5-14.5)
[2018-11-01 08:50] LABS: WHITE BLOOD COUNT 9.1 10^3/ul (4.8-10.8)
[2018-11-01] MEDS: HYDROCODONE/APAP (10/325) TAB PO ×2 (08:51→15:46)
[2018-11-01 09:19] LABS: ANION GAP 11 (5-13); BLOOD UREA NITROGEN 8 mg/dl (7-20); CALCIUM 8.6 mg/dl (8.4-10.2); CARBON DIOXIDE 25 mmol/L (21-31); CHLORIDE 103 mmol/L (97-110); CREATININE 0.47 mg/dl (0.61-1.24); Estimated GFR > 60 mL/min (>60); GLUCOSE 100 mg/dl (70-220); POTASSIUM 3.8 mmol/L (3.5-5.1); SODIUM 139 mmol/L (135-144)
[2018-11-01] MEDS: traMADol 50 MG TAB PO (12:14)
[2018-11-01] MEDS: CEPASTAT LOZENGE MM (12:50)
[2018-11-01] MEDS: SOD CHLORIDE 0.9% 1,000 ML IV (18:16)
[2018-11-01] MEDS: ATORVASTATIN 10 MG TAB PO (20:24)
[2018-11-01] MEDS: ALPRAZOLAM 0.5 MG TAB PO (20:25)
[2018-11-01] MEDS: PROMETHAZINE (1.25 MG/ML) 5 ML CUP PO (20:36)
[2018-11-01] MEDS: FLUTICASONE 0.05% 16 GM NAS SPRAY NASAL (21:49)
[2018-11-02] MEDS: CEPASTAT LOZENGE MM (03:23)
[2018-11-02] MEDS: traMADol 50 MG TAB PO ×3 (03:25→20:54)
[2018-11-02] MEDS: HYDROCODONE/APAP (10/325) TAB PO ×2 (05:22→14:53)
[2018-11-02 06:33] LABS: ADD MAN DIFF? NO
[2018-11-02 06:40] LABS: WHITE BLOOD COUNT 9.1 10^3/ul (4.8-10.8)
[2018-11-02 06:40] LABS: BASOPHILS % 0.2 % (0.0-2.0); EOSINOPHILS # 0.8 10^3/ul (0.0-0.5); EOSINOPHILS % 9.1 % (0.0-7.0); HEMATOCRIT 26.5 % (42.0-52.0); HEMOGLOBIN 8.5 g/dl (14.0-18.0); LYMPHOCYTES # 1.2 10^3/ul (0.8-2.9); MEAN CORPUSCULAR HGB CONC 32.1 g/dl (32.0-37.0); MEAN CORPUSCULAR VOLUME 87.2 fl (82.0-101.0); MEAN PLATELET VOLUME 11.8 fl (7.4-10.4); MONOCYTE # 0.6 10^3/ul (0.3-0.9); MONOCYTES % 6.2 % (0.0-11.0); NEUTROPHIL # 6.5 10^3/ul (1.6-7.5); NEUTROPHILS % 71.2 % (39.0-77.0); PLATELET COUNT 205 10^3/UL (140-415); RED BLOOD COUNT 3.04 10^6/ul (4.70-6.10); RED CELL DISTRIBUTION WIDTH 14.2 % (11.5-14.5)
[2018-11-02 07:09] LABS: ANION GAP 10 (5-13); BLOOD UREA NITROGEN 8 mg/dl (7-20); CARBON DIOXIDE 25 mmol/L (21-31); CHLORIDE 103 mmol/L (97-110); CREATININE 0.45 mg/dl (0.61-1.24); Estimated GFR > 60 mL/min (>60); GLUCOSE 101 mg/dl (70-220); MAGNESIUM 1.7 mg/dl (1.7-2.5); SODIUM 138 mmol/L (135-144)
[2018-11-02] MEDS: ARTIFICIAL TEARS 15 ML OPH BOTH EYES ×4 (08:15→20:53)
[2018-11-02] MEDS: DULOXETINE 30 MG CAP DR PO (08:19)
[2018-11-02] MEDS: CEFEPIME 1GM/50 ML (PMX) 50 ML IVPB ×2 (08:19→20:55)
[2018-11-02] MEDS: AMIODARONE 200 MG TAB PO (08:20)
[2018-11-02] MEDS: MULTIVITAMINS THERAPEUTIC TAB PO (08:21)
[2018-11-02] MEDS: METOPROLOL 25 MG TAB PO ×2 (08:23→20:55)
[2018-11-02] MEDS: GABAPENTIN 400 MG CAP PO ×3 (08:24→20:54)
[2018-11-02] MEDS: DOCUSATE SODIUM 100 MG CAP PO ×3 (09:00→20:55)
[2018-11-02] MEDS: MAGNESIUM HYDROXIDE 30ML CUP PO (09:00)
[2018-11-02] MEDS: FAMOTIDINE 20 MG TAB PO (09:00)
[2018-11-02] MEDS: SOD CHLORIDE 0.9% 1,000 ML IV (12:30)
[2018-11-02 15:26] LABS: CREATININE, RANDOM URINE 31 mg/dL (20-320); MICROALBUMIN 11.2 mg/dL; MICROALBUMIN/CREATININE RATIO 361 (<30)
[2018-11-02] MEDS: ALPRAZOLAM 0.5 MG TAB PO (20:54)
[2018-11-02] MEDS: ATORVASTATIN 10 MG TAB PO (20:54)
[2018-11-02] MEDS: FLUTICASONE 0.05% 16 GM NAS SPRAY NASAL (20:54)
[2018-11-02] MEDS: PROMETHAZINE (1.25 MG/ML) 5 ML CUP PO (21:06)
[2018-11-03] MEDS: CEPASTAT LOZENGE MM (03:50)
[2018-11-03] MEDS: HYDROCODONE/APAP (10/325) TAB PO ×2 (03:56→16:18)
[2018-11-03] MEDS: DOCUSATE SODIUM 100 MG CAP PO (09:00)
[2018-11-03] MEDS: GABAPENTIN 400 MG CAP PO ×2 (09:37→12:36)
[2018-11-03] MEDS: MULTIVITAMINS THERAPEUTIC TAB PO (09:37)
[2018-11-03] MEDS: FAMOTIDINE 20 MG TAB PO (09:38)
[2018-11-03] MEDS: DULOXETINE 30 MG CAP DR PO (09:45)
[2018-11-03] MEDS: METOPROLOL 25 MG TAB PO (09:45)
[2018-11-03] MEDS: CEFEPIME 1GM/50 ML (PMX) 50 ML IVPB (09:46)
[2018-11-03] MEDS: AMIODARONE 200 MG TAB PO (09:46)
[2018-11-03] MEDS: ARTIFICIAL TEARS 15 ML OPH BOTH EYES ×2 (09:47→12:34)
== END 2018-11-03 17:38 | DRG 871 ==
LOC: TEL 22:29 → E/R 20:23
DX: A41.9 Sepsis, unspecified organism (principal); G82.50 Quadriplegia, unspecified; L89.323 Pressure ulcer of left buttock, stage 3; N12 Tubulo-interstitial nephritis, not specified as acute or chronic; J96.10 Chronic respiratory failure, unspecified whether with hypoxia or hypercapnia; E22.2 Syndrome of inappropriate secretion of antidiuretic hormone; N39.0 Urinary tract infection, site not specified; Z93.0 Tracheostomy status; I48.0 Paroxysmal atrial fibrillation; R31.9 Hematuria, unspecified; L89.620 Pressure ulcer of left heel, unstageable; I10 Essential (primary) hypertension; E78.5 Hyperlipidemia, unspecified; F32.9 Major depressive disorder, single episode, unspecified; F41.9 Anxiety disorder, unspecified; Z87.440 Personal history of urinary (tract) infections; Z85.46 Personal history of malignant neoplasm of prostate; Z87.891 Personal history of nicotine dependence
CPT/HCPCS: 36415; 71045; 74176; 80048; 80053; 81001; 81003; 82043; 83036; 83605; 83735; 83935; 84100; 84155; 84300; 84484; 85025; 85610; 85730; 87040; 87086; 93005; 96374; 99291-25

== ENCOUNTER 2019-01-18 13:11 | Inpatient (IN) | payer MEDICARE, BC, OTHER ==
[2019-01-18 14:12] LABS: ADD MAN DIFF? NO
[2019-01-18] MEDS: SODIUM CHLORIDE 0.9% 1L BAG IV* (14:13)
[2019-01-18] MEDS: ACETAMINOPHEN 650MG/20.3ML CUP GTB (14:13)
[2019-01-18 14:18] LABS: BASOPHILS % 0.3 % (0.0-2.0); EOSINOPHILS % 0.1 % (0.0-7.0); HEMATOCRIT 32.3 % (42.0-52.0); HEMOGLOBIN 10.9 g/dl (14.0-18.0); MEAN CORPUSCULAR HEMOGLOBIN 27.7 pg (29.0-33.0); MEAN CORPUSCULAR HGB CONC 33.7 g/dl (32.0-37.0); MEAN CORPUSCULAR VOLUME 82.2 fl (82.0-101.0); MEAN PLATELET VOLUME 11.2 fl (7.4-10.4); MONOCYTES % 6.8 % (0.0-11.0); NEUTROPHIL # 12.6 10^3/ul (1.6-7.5); NEUTROPHILS % 85.4 % (39.0-77.0); PLATELET COUNT 353 10^3/UL (140-415); RED BLOOD COUNT 3.93 10^6/ul (4.70-6.10); RED CELL DISTRIBUTION WIDTH 13.6 % (11.5-14.5)
[2019-01-18 14:18] LABS: WHITE BLOOD COUNT 14.8 10^3/ul (4.8-10.8)
[2019-01-18 14:24] LABS: ADD UMIC YES; UR ASCORBIC ACID NEGATIVE (NEGATIVE); UR BACTERIA FEW /HPF (NONE SEEN); UR BILIRUBIN (Dip) NEGATIVE (NEGATIVE); UR BLOOD (Dip) NEGATIVE (NEGATIVE); UR CLARITY CLOUDY (CLEAR); UR COLOR AMBER (YELLOW); UR GLUCOSE (Dip) NEGATIVE (NEGATIVE); UR KETONES (Dip) NEGATIVE (NEGATIVE); UR LEUKOCYTE ESTERASE (Dip) 3+ Leu/ul (NEGATIVE); UR MUCUS FEW /HPF (NONE SEEN); UR NITRITE (Dip) POSITIVE (NEGATIVE); UR RBC 18 /HPF (0-5); UR SPECIFIC GRAVITY (Dip) 1.023 (1.003-1.030); UR TOTAL PROTEIN (Dip) 2+ mg/dl (NEGATIVE); UR UROBILINOGEN (Dip) 2+ mg/dL (NEGATIVE); UR WBC 25 /HPF (0-5)
[2019-01-18 14:37] LABS: ALANINE AMINOTRANSFERASE 10 IU/L (13-69); ALBUMIN 3.7 g/dl (3.3-4.9); ALBUMIN/GLOBULIN RATIO 1.15; ALKALINE PHOSPHATASE 62 IU/L (42-121); ANION GAP 12 (5-13); ASPARTATE AMINO TRANSFERASE 15 IU/L (15-46); BILIRUBIN,INDIRECT 0.2 mg/dl (0-1.1); BILIRUBIN,TOTAL 0.2 mg/dl (0.2-1.3); BLOOD UREA NITROGEN 11 mg/dl (7-20); CALCIUM 9.1 mg/dl (8.4-10.2); CARBON DIOXIDE 24 mmol/L (21-31); CHLORIDE 89 mmol/L (97-110); Estimated GFR > 60 mL/min (>60); GLUCOSE 94 mg/dl (70-220); INR 1.01; POTASSIUM 4.4 mmol/L (3.5-5.1); PROTIME 13.4 Sec (11.9-14.9); SODIUM 125 mmol/L (135-144); TOTAL PROTEIN 6.9 g/dl (6.1-8.1)
[2019-01-18 14:38] LABS: PARTIAL THROMBOPLASTIN TIME 32.5 Sec (23.0-35.0)
[2019-01-18] MEDS: CEFEPIME 1GM/50 ML (PMX) 50 ML IVPB (14:59)
[2019-01-18] MEDS: VANCOMYCIN 1 GM (PMX) 250 ML IVPB (15:00)
[2019-01-18] MEDS ORDERED: ONDANSETRON 4 MG INJ IV ×2 (15:30→20:30)
[2019-01-18] MEDS ORDERED: ACETAMINOPHEN 325 MG TAB PO (15:30)
[2019-01-18] MEDS: GABAPENTIN 400 MG CAP PO ×2 (17:00→21:42)
[2019-01-18] MEDS ORDERED: traMADol 50 MG TAB PO (17:00)
[2019-01-18] MEDS: MINERAL OIL 133 ML ENEMA PR (17:00)
[2019-01-18] MEDS: METOPROLOL 25 MG TAB PO (17:00)
[2019-01-18 18:50] LABS: LACTIC ACID 1.2 mmol/L (0.5-2.0)
[2019-01-18] MEDS ORDERED: BISACODYL (EC) 5 MG TAB PO (20:30)
[2019-01-18] MEDS ORDERED: ZOLPIDEM 5 MG TAB PO (20:30)
[2019-01-18] MEDS ORDERED: DOCUSATE SODIUM 100 MG CAP PO (20:30)
[2019-01-18] MEDS: HYDROCODONE/APAP (10/325) TAB PO (21:42)
[2019-01-18] MEDS: PIPER-TAZO 3.375 GM IV (PMX) 100 ML IVPB (21:42)
[2019-01-18] MEDS: FAMOTIDINE 20 MG TAB PO (21:42)
[2019-01-19] MEDS: GABAPENTIN 400 MG CAP PO ×3 (05:12→22:10)
[2019-01-19] MEDS: PIPER-TAZO 3.375 GM IV (PMX) 100 ML IVPB ×3 (05:13→22:10)
[2019-01-19] MEDS: METOPROLOL 25 MG TAB PO ×2 (05:13→17:46)
[2019-01-19 06:02] LABS: ADD MAN DIFF? NO
[2019-01-19 06:10] LABS: WHITE BLOOD COUNT 13.4 10^3/ul (4.8-10.8)
[2019-01-19 06:10] LABS: BASOPHILS % 0.3 % (0.0-2.0); EOSINOPHILS # 0.1 10^3/ul (0.0-0.5); EOSINOPHILS % 0.6 % (0.0-7.0); HEMATOCRIT 27.3 % (42.0-52.0); HEMOGLOBIN 9.2 g/dl (14.0-18.0); LYMPHOCYTES # 1.1 10^3/ul (0.8-2.9); LYMPHOCYTES % 8.5 % (15.0-51.0); MEAN CORPUSCULAR HEMOGLOBIN 27.9 pg (29.0-33.0); MEAN CORPUSCULAR HGB CONC 33.7 g/dl (32.0-37.0); MEAN CORPUSCULAR VOLUME 82.7 fl (82.0-101.0); MEAN PLATELET VOLUME 11.8 fl (7.4-10.4); MONOCYTE # 0.9 10^3/ul (0.3-0.9); MONOCYTES % 6.4 % (0.0-11.0); NEUTROPHIL # 11.1 10^3/ul (1.6-7.5); NEUTROPHILS % 83.5 % (39.0-77.0); PLATELET COUNT 263 10^3/UL (140-415); RED CELL DISTRIBUTION WIDTH 14.1 % (11.5-14.5)
[2019-01-19 06:26] LABS: MAGNESIUM 1.6 mg/dl (1.7-2.5)
[2019-01-19 06:32] LABS: ANION GAP 8 (5-13); BLOOD UREA NITROGEN 6 mg/dl (7-20); CALCIUM 8.8 mg/dl (8.4-10.2); CARBON DIOXIDE 22 mmol/L (21-31); CHLORIDE 97 mmol/L (97-110); CREATININE 0.41 mg/dl (0.61-1.24); Estimated GFR > 60 mL/min (>60); GLUCOSE 94 mg/dl (70-220); POTASSIUM 3.6 mmol/L (3.5-5.1); SODIUM 127 mmol/L (135-144)
[2019-01-19] MEDS: MAGNESIUM HYDROXIDE 30ML CUP PO (09:32)
[2019-01-19] MEDS: DULOXETINE 30 MG CAP DR PO (09:33)
[2019-01-19] MEDS: MULTIVITAMINS/MINERALS TAB PO (09:33)
[2019-01-19] MEDS: ENOXAPARIN 30 MG/0.3 ML SYG SC (09:40)
[2019-01-19] MEDS: ALPRAZOLAM 0.5 MG TAB PO ×2 (12:22→22:19)
[2019-01-19] MEDS: PROMETHAZINE (1.25 MG/ML) 5 ML CUP PO ×3 (12:23→22:10)
[2019-01-19] MEDS: MAGNESIUM SULFATE 2 GM/50 ML 50 ML IVPB (14:25)
[2019-01-19] MEDS: SOD CHLORIDE 0.9% 1,000 ML IV (14:29)
[2019-01-19 15:37] LABS: SODIUM,URINE RANDOM 98 mmol/L (30-90)
[2019-01-19 15:43] LABS: ADD UMIC YES; UR ASCORBIC ACID NEGATIVE (NEGATIVE); UR BACTERIA FEW /HPF (NONE SEEN); UR BILIRUBIN (Dip) NEGATIVE (NEGATIVE); UR BLOOD (Dip) 1+ mg/dL (NEGATIVE); UR CLARITY CLEAR (CLEAR); UR COLOR YELLOW (YELLOW); UR GLUCOSE (Dip) NEGATIVE (NEGATIVE); UR KETONES (Dip) NEGATIVE (NEGATIVE); UR LEUKOCYTE ESTERASE (Dip) 3+ Leu/ul (NEGATIVE); UR NITRITE (Dip) NEGATIVE (NEGATIVE); UR RBC 3 /HPF (0-5); UR SPECIFIC GRAVITY (Dip) 1.011 (1.003-1.030); UR TOTAL PROTEIN (Dip) NEGATIVE (NEGATIVE); UR UROBILINOGEN (Dip) NEGATIVE (NEGATIVE); UR WBC 14 /HPF (0-5)
[2019-01-19 16:21] LABS: CREATININE,URINE RANDOM 28.72 mg/dl (20-370)
[2019-01-19] MEDS ORDERED: VANCOMYCIN IV PER PHARMACY XX (17:00)
[2019-01-19] MEDS: VANCOMYCIN HCL 1.5 GM in SOD CHLORIDE 0.9% 250 ML IVPB (18:50)
[2019-01-19 19:40] LABS: SODIUM 124 mmol/L (135-144)
[2019-01-19] MEDS: LEVALBUTEROL (NEB) 0.63 MG/3 ML AMP HHN (20:09)
[2019-01-19 20:37] LABS: OSMOLALITY,URINE 335 mOsm/kg (250-1200)
[2019-01-19] MEDS: FAMOTIDINE 20 MG TAB PO (22:10)
[2019-01-20] MEDS: HYDROCODONE/APAP (10/325) TAB PO ×2 (01:59→17:00)
[2019-01-20] MEDS: PROMETHAZINE (1.25 MG/ML) 5 ML CUP PO ×3 (05:25→20:38)
[2019-01-20] MEDS: METOPROLOL 25 MG TAB PO ×2 (05:26→17:02)
[2019-01-20] MEDS: GABAPENTIN 400 MG CAP PO ×3 (05:27→22:48)
[2019-01-20] MEDS: PIPER-TAZO 3.375 GM IV (PMX) 100 ML IVPB ×3 (05:27→22:46)
[2019-01-20 07:27] LABS: ADD MAN DIFF? NO
[2019-01-20 07:34] LABS: WHITE BLOOD COUNT 10.4 10^3/ul (4.8-10.8)
[2019-01-20 07:34] LABS: BASOPHIL # 0.1 10^3/ul (0.0-0.1); BASOPHILS % 0.5 % (0.0-2.0); EOSINOPHILS # 0.4 10^3/ul (0.0-0.5); EOSINOPHILS % 3.4 % (0.0-7.0); HEMATOCRIT 27.4 % (42.0-52.0); HEMOGLOBIN 9.3 g/dl (14.0-18.0); LYMPHOCYTES # 1.2 10^3/ul (0.8-2.9); LYMPHOCYTES % 11.6 % (15.0-51.0); MEAN CORPUSCULAR HEMOGLOBIN 28.1 pg (29.0-33.0); MEAN CORPUSCULAR HGB CONC 33.9 g/dl (32.0-37.0); MEAN CORPUSCULAR VOLUME 82.8 fl (82.0-101.0); MONOCYTE # 0.8 10^3/ul (0.3-0.9); MONOCYTES % 7.8 % (0.0-11.0); NEUTROPHIL # 7.9 10^3/ul (1.6-7.5); NEUTROPHILS % 76.1 % (39.0-77.0); PLATELET COUNT 286 10^3/UL (140-415); RED BLOOD COUNT 3.31 10^6/ul (4.70-6.10); RED CELL DISTRIBUTION WIDTH 14.1 % (11.5-14.5)
[2019-01-20 08:07] LABS: ANION GAP 10 (5-13); BLOOD UREA NITROGEN 4 mg/dl (7-20); CALCIUM 8.6 mg/dl (8.4-10.2); CARBON DIOXIDE 27 mmol/L (21-31); CHLORIDE 93 mmol/L (97-110); CREATININE 0.39 mg/dl (0.61-1.24); Estimated GFR > 60 mL/min (>60); GLUCOSE 100 mg/dl (70-220); MAGNESIUM 2.1 mg/dl (1.7-2.5); PHOSPHORUS 3.3 mg/dl (2.5-4.9); POTASSIUM 3.8 mmol/L (3.5-5.1); SODIUM 130 mmol/L (135-144)
[2019-01-20] MEDS: VANCOMYCIN 1 GM 250 ML IVPB ×2 (08:42→20:39)
[2019-01-20] MEDS: SOD CHLORIDE 0.9% 1,000 ML IV (08:42)
[2019-01-20] MEDS: DULOXETINE 30 MG CAP DR PO (08:43)
[2019-01-20] MEDS: MAGNESIUM HYDROXIDE 30ML CUP PO (08:43)
[2019-01-20] MEDS: MULTIVITAMINS/MINERALS TAB PO (08:43)
[2019-01-20] MEDS: ENOXAPARIN 30 MG/0.3 ML SYG SC (08:45)
[2019-01-20] MEDS: MUPIROCIN 2% 22 GM OINT TOP ×2 (11:47→22:47)
[2019-01-20] MEDS: FUROSEMIDE 40 MG INJ IV (13:44)
[2019-01-20] MEDS: FAMOTIDINE 20 MG TAB PO (20:38)
[2019-01-20] MEDS: ALPRAZOLAM 0.5 MG TAB PO (20:38)
[2019-01-20] MEDS: LEVALBUTEROL (NEB) 0.63 MG/3 ML AMP HHN (21:00)
[2019-01-21] MEDS: HYDROCODONE/APAP (10/325) TAB PO (00:25)
[2019-01-21] MEDS: ALPRAZOLAM 0.5 MG TAB PO (02:26)
[2019-01-21] MEDS: METOPROLOL 25 MG TAB PO ×2 (05:02→18:20)
[2019-01-21] MEDS: FUROSEMIDE 40 MG INJ IV (05:03)
[2019-01-21] MEDS: PROMETHAZINE (1.25 MG/ML) 5 ML CUP PO ×3 (05:03→20:20)
[2019-01-21] MEDS: PIPER-TAZO 3.375 GM IV (PMX) 100 ML IVPB ×2 (05:26→14:11)
[2019-01-21] MEDS: GABAPENTIN 400 MG CAP PO ×3 (05:34→21:36)
[2019-01-21] MEDS: LEVALBUTEROL (NEB) 0.63 MG/3 ML AMP HHN ×2 (05:40→14:15)
[2019-01-21 07:15] LABS: ADD MAN DIFF? NO
[2019-01-21 07:18] LABS: BASOPHIL # 0.1 10^3/ul (0.0-0.1); BASOPHILS % 0.6 % (0.0-2.0); EOSINOPHILS # 0.6 10^3/ul (0.0-0.5); EOSINOPHILS % 6.6 % (0.0-7.0); HEMATOCRIT 31.1 % (42.0-52.0); LYMPHOCYTES # 1.1 10^3/ul (0.8-2.9); LYMPHOCYTES % 11.4 % (15.0-51.0); MEAN CORPUSCULAR HEMOGLOBIN 27.1 pg (29.0-33.0); MEAN CORPUSCULAR HGB CONC 32.2 g/dl (32.0-37.0); MEAN CORPUSCULAR VOLUME 84.3 fl (82.0-101.0); MEAN PLATELET VOLUME 10.9 fl (7.4-10.4); MONOCYTE # 0.7 10^3/ul (0.3-0.9); MONOCYTES % 7.3 % (0.0-11.0); NEUTROPHIL # 7.1 10^3/ul (1.6-7.5); NEUTROPHILS % 73.6 % (39.0-77.0); PLATELET COUNT 294 10^3/UL (140-415); RED BLOOD COUNT 3.69 10^6/ul (4.70-6.10)
[2019-01-21 07:18] LABS: WHITE BLOOD COUNT 9.7 10^3/ul (4.8-10.8)
[2019-01-21 07:35] LABS: ANION GAP 10 (5-13); BLOOD UREA NITROGEN 4 mg/dl (7-20); CALCIUM 8.9 mg/dl (8.4-10.2); CARBON DIOXIDE 29 mmol/L (21-31); CHLORIDE 91 mmol/L (97-110); CREATININE 0.39 mg/dl (0.61-1.24); Estimated GFR > 60 mL/min (>60); GLUCOSE 107 mg/dl (70-220); MAGNESIUM 1.9 mg/dl (1.7-2.5); PHOSPHORUS 4.1 mg/dl (2.5-4.9); POTASSIUM 3.6 mmol/L (3.5-5.1); SODIUM 130 mmol/L (135-144)
[2019-01-21 07:46] LABS: VANCOMYCIN,TROUGH 11.7 ug/ml (10.0-20.0)
[2019-01-21] MEDS: VANCOMYCIN 1 GM 250 ML IVPB (08:57)
[2019-01-21] MEDS: MAGNESIUM HYDROXIDE 30ML CUP PO (08:57)
[2019-01-21] MEDS: MUPIROCIN 2% 22 GM OINT TOP ×2 (08:58→21:37)
[2019-01-21] MEDS: DULOXETINE 30 MG CAP DR PO (08:58)
[2019-01-21] MEDS: MULTIVITAMINS/MINERALS TAB PO (08:58)
[2019-01-21] MEDS: ENOXAPARIN 30 MG/0.3 ML SYG SC (09:00)
[2019-01-21] MEDS: MINERAL OIL 133 ML ENEMA PR (17:00)
[2019-01-21] MEDS: VANCOMYCIN HCL 1.25 GM in SOD CHLORIDE 0.9% 250 ML IVPB (20:58)
[2019-01-21] MEDS: FAMOTIDINE 20 MG TAB PO (21:36)
[2019-01-22] MEDS: PIPER-TAZO 3.375 GM IV (PMX) 100 ML IVPB ×4 (00:11→22:02)
[2019-01-22] MEDS: PROMETHAZINE (1.25 MG/ML) 5 ML CUP PO ×3 (03:23→20:52)
[2019-01-22] MEDS: FUROSEMIDE 40 MG INJ IV (05:57)
[2019-01-22] MEDS: GABAPENTIN 400 MG CAP PO ×3 (05:57→22:02)
[2019-01-22] MEDS: METOPROLOL 25 MG TAB PO ×2 (05:57→17:50)
[2019-01-22] MEDS: MAGNESIUM HYDROXIDE 30ML CUP PO (09:00)
[2019-01-22] MEDS: MULTIVITAMINS/MINERALS TAB PO (09:22)
[2019-01-22] MEDS: MUPIROCIN 2% 22 GM OINT TOP ×2 (09:22→20:55)
[2019-01-22] MEDS: DULOXETINE 30 MG CAP DR PO (09:22)
[2019-01-22] MEDS: HYDROCODONE/APAP (10/325) TAB PO ×2 (09:23→18:03)
[2019-01-22] MEDS: ENOXAPARIN 30 MG/0.3 ML SYG SC (09:32)
[2019-01-22] MEDS: VANCOMYCIN HCL 1.25 GM in SOD CHLORIDE 0.9% 250 ML IVPB (10:04)
[2019-01-22] MEDS: FAMOTIDINE 20 MG TAB PO (20:55)
[2019-01-23] MEDS: PROMETHAZINE (1.25 MG/ML) 5 ML CUP PO ×4 (03:30→20:15)
[2019-01-23 05:16] LABS: ADD MAN DIFF? NO
[2019-01-23 05:20] LABS: BASOPHIL # 0.1 10^3/ul (0.0-0.1); BASOPHILS % 0.6 % (0.0-2.0); EOSINOPHILS # 0.8 10^3/ul (0.0-0.5); EOSINOPHILS % 5.9 % (0.0-7.0); HEMATOCRIT 31.3 % (42.0-52.0); HEMOGLOBIN 10.1 g/dl (14.0-18.0); LYMPHOCYTES # 1.3 10^3/ul (0.8-2.9); LYMPHOCYTES % 9.6 % (15.0-51.0); MEAN CORPUSCULAR HEMOGLOBIN 27.2 pg (29.0-33.0); MEAN CORPUSCULAR HGB CONC 32.3 g/dl (32.0-37.0); MEAN CORPUSCULAR VOLUME 84.1 fl (82.0-101.0); MEAN PLATELET VOLUME 10.5 fl (7.4-10.4); MONOCYTE # 0.9 10^3/ul (0.3-0.9); MONOCYTES % 6.4 % (0.0-11.0); NEUTROPHIL # 10.6 10^3/ul (1.6-7.5); NEUTROPHILS % 76.9 % (39.0-77.0); PLATELET COUNT 344 10^3/UL (140-415); RED BLOOD COUNT 3.72 10^6/ul (4.70-6.10); RED CELL DISTRIBUTION WIDTH 14.2 % (11.5-14.5)
[2019-01-23 05:20] LABS: WHITE BLOOD COUNT 13.7 10^3/ul (4.8-10.8)
[2019-01-23] MEDS: PIPER-TAZO 3.375 GM IV (PMX) 100 ML IVPB ×2 (05:23→13:28)
[2019-01-23] MEDS: FUROSEMIDE 40 MG INJ IV (05:25)
[2019-01-23] MEDS: GABAPENTIN 400 MG CAP PO ×3 (05:25→21:29)
[2019-01-23] MEDS: METOPROLOL 25 MG TAB PO ×2 (05:25→17:23)
[2019-01-23] MEDS: HYDROCODONE/APAP (10/325) TAB PO ×2 (07:53→17:22)
[2019-01-23] MEDS: MAGNESIUM HYDROXIDE 30ML CUP PO (08:44)
[2019-01-23] MEDS: MUPIROCIN 2% 22 GM OINT TOP ×2 (08:44→21:29)
[2019-01-23] MEDS: MULTIVITAMINS/MINERALS TAB PO (08:44)
[2019-01-23] MEDS: ENOXAPARIN 30 MG/0.3 ML SYG SC (08:54)
[2019-01-23] MEDS: DULOXETINE 30 MG CAP DR PO (09:58)
[2019-01-23 15:01] LABS: CREATININE, RANDOM URINE 32 mg/dL (20-320); MICROALBUMIN 3.3 mg/dL; MICROALBUMIN/CREATININE RATIO 103 (<30)
[2019-01-23] MEDS ORDERED: GENTAMICIN IV PER PHARMACY XX (17:30)
[2019-01-23 18:28] LABS: ADD UMIC YES; UR ASCORBIC ACID NEGATIVE (NEGATIVE); UR BACTERIA FEW /HPF (NONE SEEN); UR BILIRUBIN (Dip) NEGATIVE (NEGATIVE); UR BLOOD (Dip) 2+ mg/dL (NEGATIVE); UR BUDDING YEAST MODERATE /HPF (NONE SEEN); UR CLARITY CLOUDY (CLEAR); UR COLOR YELLOW (YELLOW); UR GLUCOSE (Dip) NEGATIVE (NEGATIVE); UR KETONES (Dip) NEGATIVE (NEGATIVE); UR LEUKOCYTE ESTERASE (Dip) 3+ Leu/ul (NEGATIVE); UR NITRITE (Dip) NEGATIVE (NEGATIVE); UR RBC 15 /HPF (0-5); UR SPECIFIC GRAVITY (Dip) 1.002 (1.003-1.030); UR TOTAL PROTEIN (Dip) NEGATIVE (NEGATIVE); UR UROBILINOGEN (Dip) NEGATIVE (NEGATIVE); UR WBC 16 /HPF (0-5)
[2019-01-23] MEDS: GENTAMICIN 140 MG in DEXTROSE 5% 100 ML IVPB (20:51)
[2019-01-23] MEDS: APIXABAN 5 MG TABLET PO (21:29)
[2019-01-23] MEDS: FAMOTIDINE 20 MG TAB PO (21:29)
[2019-01-24] MEDS: PROMETHAZINE (1.25 MG/ML) 5 ML CUP PO ×2 (03:19→11:29)
[2019-01-24] MEDS: GABAPENTIN 400 MG CAP PO ×3 (05:46→21:23)
[2019-01-24] MEDS: METOPROLOL 25 MG TAB PO ×2 (05:46→16:49)
[2019-01-24] MEDS: FUROSEMIDE 40 MG INJ IV (05:55)
[2019-01-24 08:14] LABS: ADD MAN DIFF? NO
[2019-01-24 08:20] LABS: BASOPHIL # 0.1 10^3/ul (0.0-0.1); BASOPHILS % 0.5 % (0.0-2.0); EOSINOPHILS # 0.8 10^3/ul (0.0-0.5); EOSINOPHILS % 5.4 % (0.0-7.0); HEMATOCRIT 31.5 % (42.0-52.0); HEMOGLOBIN 9.9 g/dl (14.0-18.0); LYMPHOCYTES # 1.3 10^3/ul (0.8-2.9); LYMPHOCYTES % 8.8 % (15.0-51.0); MEAN CORPUSCULAR HEMOGLOBIN 27.4 pg (29.0-33.0); MEAN CORPUSCULAR HGB CONC 31.4 g/dl (32.0-37.0); MEAN CORPUSCULAR VOLUME 87.3 fl (82.0-101.0); MEAN PLATELET VOLUME 12.1 fl (7.4-10.4); MONOCYTE # 0.8 10^3/ul (0.3-0.9); MONOCYTES % 5.5 % (0.0-11.0); NEUTROPHIL # 11.9 10^3/ul (1.6-7.5); NEUTROPHILS % 79.2 % (39.0-77.0); PLATELET COUNT 346 10^3/UL (140-415); POSITIVE DIFF @See below; RED BLOOD COUNT 3.61 10^6/ul (4.70-6.10); RED CELL DISTRIBUTION WIDTH 14.4 % (11.5-14.5)
[2019-01-24] MEDS: MULTIVITAMINS/MINERALS TAB PO (08:28)
[2019-01-24] MEDS: MAGNESIUM HYDROXIDE 30ML CUP PO (08:28)
[2019-01-24] MEDS: DULOXETINE 30 MG CAP DR PO (08:28)
[2019-01-24] MEDS: APIXABAN 5 MG TABLET PO ×2 (08:28→21:23)
[2019-01-24] MEDS: GENTAMICIN 140 MG in DEXTROSE 5% 100 ML IVPB ×2 (08:29→21:23)
[2019-01-24] MEDS: MUPIROCIN 2% 22 GM OINT TOP ×2 (08:29→21:26)
[2019-01-24 08:41] LABS: ANION GAP 11 (5-13); BLOOD UREA NITROGEN 8 mg/dl (7-20); CALCIUM 9.6 mg/dl (8.4-10.2); CARBON DIOXIDE 29 mmol/L (21-31); CHLORIDE 94 mmol/L (97-110); CREATININE 0.71 mg/dl (0.61-1.24); Estimated GFR > 60 mL/min (>60); GLUCOSE 91 mg/dl (70-220); MAGNESIUM 2.4 mg/dl (1.7-2.5); PHOSPHORUS 4.6 mg/dl (2.5-4.9); SODIUM 134 mmol/L (135-144)
[2019-01-24] MEDS ORDERED: PROMETHAZINE (1.25 MG/ML) 5 ML CUP PO (16:00)
[2019-01-24] MEDS: AMLODIPINE 5 MG TAB PO (16:30)
[2019-01-24] MEDS: ACETAMINOPHEN 325 MG TAB PO (16:48)
[2019-01-24] MEDS: hydrALAzine 20 MG INJ IV (16:49)
[2019-01-24] MEDS: MINERAL OIL 133 ML ENEMA PR (17:00)
[2019-01-24 20:52] LABS: GENTAMICIN,TROUGH 3.4 ug/ml (1.0-2.0)
[2019-01-24] MEDS: FAMOTIDINE 20 MG TAB PO (21:23)
[2019-01-24] MEDS: ALPRAZOLAM 0.5 MG TAB PO (23:17)
[2019-01-25 05:22] LABS: ADD MAN DIFF? NO
[2019-01-25 05:38] LABS: BASOPHIL # 0.1 10^3/ul (0.0-0.1); BASOPHILS % 0.5 % (0.0-2.0); EOSINOPHILS # 0.5 10^3/ul (0.0-0.5); EOSINOPHILS % 3.9 % (0.0-7.0); HEMATOCRIT 28.5 % (42.0-52.0); HEMOGLOBIN 9.3 g/dl (14.0-18.0); LYMPHOCYTES # 1.4 10^3/ul (0.8-2.9); LYMPHOCYTES % 10.7 % (15.0-51.0); MEAN CORPUSCULAR HEMOGLOBIN 27.8 pg (29.0-33.0); MEAN CORPUSCULAR HGB CONC 32.6 g/dl (32.0-37.0); MEAN CORPUSCULAR VOLUME 85.1 fl (82.0-101.0); MEAN PLATELET VOLUME 10.7 fl (7.4-10.4); MONOCYTE # 0.9 10^3/ul (0.3-0.9); MONOCYTES % 6.7 % (0.0-11.0); NEUTROPHIL # 10.3 10^3/ul (1.6-7.5); NEUTROPHILS % 77.7 % (39.0-77.0); PLATELET COUNT 457 10^3/UL (140-415); RED BLOOD COUNT 3.35 10^6/ul (4.70-6.10); RED CELL DISTRIBUTION WIDTH 14.1 % (11.5-14.5)
[2019-01-25 05:38] LABS: WHITE BLOOD COUNT 13.2 10^3/ul (4.8-10.8)
[2019-01-25 06:05] LABS: LACTIC ACID 0.8 mmol/L (0.5-2.0)
[2019-01-25 06:24] LABS: ANION GAP 8 (5-13); BLOOD UREA NITROGEN 11 mg/dl (7-20); CALCIUM 9.2 mg/dl (8.4-10.2); CARBON DIOXIDE 32 mmol/L (21-31); CHLORIDE 91 mmol/L (97-110); CREATININE 0.66 mg/dl (0.61-1.24); Estimated GFR > 60 mL/min (>60); GLUCOSE 93 mg/dl (70-220); MAGNESIUM 2.3 mg/dl (1.7-2.5); PHOSPHORUS 4.3 mg/dl (2.5-4.9); SODIUM 131 mmol/L (135-144)
[2019-01-25] MEDS: GABAPENTIN 400 MG CAP PO ×3 (06:32→21:14)
[2019-01-25] MEDS: FUROSEMIDE 40 MG INJ IV (06:33)
[2019-01-25] MEDS: METOPROLOL 25 MG TAB PO ×2 (06:33→18:37)
[2019-01-25] MEDS ORDERED: GENTAMICIN 120 MG/NS (PMX) 100 ML IVPB (08:30)
[2019-01-25] MEDS: MAGNESIUM HYDROXIDE 30ML CUP PO (09:00)
[2019-01-25] MEDS: APIXABAN 5 MG TABLET PO ×2 (09:13→21:15)
[2019-01-25] MEDS: MULTIVITAMINS/MINERALS TAB PO (09:13)
[2019-01-25] MEDS: DULOXETINE 30 MG CAP DR PO (09:13)
[2019-01-25] MEDS: MUPIROCIN 2% 22 GM OINT TOP ×2 (09:14→21:15)
[2019-01-25] MEDS: AMLODIPINE 5 MG TAB PO (09:14)
[2019-01-25] MEDS: HYDROCODONE/APAP (10/325) TAB PO (13:44)
[2019-01-25] MEDS: FAMOTIDINE 20 MG TAB PO (21:15)
[2019-01-25] MEDS: GENTAMICIN 120 MG/NS (PMX) 100 ML IVPB (21:36)
[2019-01-25] MEDS: ALPRAZOLAM 0.5 MG TAB PO (23:20)
[2019-01-26 05:39] LABS: ADD MAN DIFF? NO
[2019-01-26 05:43] LABS: BASOPHIL # 0.1 10^3/ul (0.0-0.1); BASOPHILS % 0.5 % (0.0-2.0); EOSINOPHILS # 0.6 10^3/ul (0.0-0.5); HEMATOCRIT 30.2 % (42.0-52.0); HEMOGLOBIN 9.9 g/dl (14.0-18.0); LYMPHOCYTES # 1.4 10^3/ul (0.8-2.9); LYMPHOCYTES % 13.2 % (15.0-51.0); MEAN CORPUSCULAR HEMOGLOBIN 27.3 pg (29.0-33.0); MEAN CORPUSCULAR HGB CONC 32.8 g/dl (32.0-37.0); MEAN CORPUSCULAR VOLUME 83.4 fl (82.0-101.0); MEAN PLATELET VOLUME 10.5 fl (7.4-10.4); MONOCYTE # 0.9 10^3/ul (0.3-0.9); MONOCYTES % 8.3 % (0.0-11.0); NEUTROPHIL # 7.6 10^3/ul (1.6-7.5); NEUTROPHILS % 71.3 % (39.0-77.0); PLATELET COUNT 399 10^3/UL (140-415); RED BLOOD COUNT 3.62 10^6/ul (4.70-6.10); RED CELL DISTRIBUTION WIDTH 14.2 % (11.5-14.5)
[2019-01-26 05:43] LABS: WHITE BLOOD COUNT 10.7 10^3/ul (4.8-10.8)
[2019-01-26] MEDS: GABAPENTIN 400 MG CAP PO ×2 (05:59→14:09)
[2019-01-26] MEDS: METOPROLOL 25 MG TAB PO ×2 (06:00→17:00)
[2019-01-26] MEDS: FUROSEMIDE 40 MG INJ IV (06:00)
[2019-01-26 06:27] LABS: ANION GAP 9 (5-13); BLOOD UREA NITROGEN 13 mg/dl (7-20); CALCIUM 9.3 mg/dl (8.4-10.2); CARBON DIOXIDE 31 mmol/L (21-31); CHLORIDE 90 mmol/L (97-110); CREATININE 0.68 mg/dl (0.61-1.24); Estimated GFR > 60 mL/min (>60); GLUCOSE 94 mg/dl (70-220); MAGNESIUM 2.2 mg/dl (1.7-2.5); PHOSPHORUS 4.9 mg/dl (2.5-4.9); POTASSIUM 4.3 mmol/L (3.5-5.1); SODIUM 130 mmol/L (135-144)
[2019-01-26] MEDS: DULOXETINE 30 MG CAP DR PO (08:59)
[2019-01-26] MEDS: MULTIVITAMINS/MINERALS TAB PO (08:59)
[2019-01-26] MEDS: AMLODIPINE 5 MG TAB PO (08:59)
[2019-01-26] MEDS: MAGNESIUM HYDROXIDE 30ML CUP PO (08:59)
[2019-01-26] MEDS: APIXABAN 5 MG TABLET PO (08:59)
[2019-01-26] MEDS: MUPIROCIN 2% 22 GM OINT TOP (09:00)
[2019-01-26] MEDS: HYDROCODONE/APAP (10/325) TAB PO (14:09)
[2019-01-28 12:56] LABS: PROCALCITONIN <0.10 ng/mL (<0.10)
== END 2019-01-26 20:25 | DRG 871 ==
LOC: 2NE 17:41 → E/R 13:11 → 2NE 15:14
DX: A41.1 Sepsis due to other specified staphylococcus (principal); G82.50 Quadriplegia, unspecified; J96.21 Acute and chronic respiratory failure with hypoxia; J15.6 Pneumonia due to other Gram-negative bacteria; J15.1 Pneumonia due to Pseudomonas; N39.0 Urinary tract infection, site not specified; E87.1 Hypo-osmolality and hyponatremia; I50.30 Unspecified diastolic (congestive) heart failure; B37.49 Other urogenital candidiasis; E83.42 Hypomagnesemia; Z93.0 Tracheostomy status; I48.0 Paroxysmal atrial fibrillation; I35.0 Nonrheumatic aortic (valve) stenosis; N31.9 Neuromuscular dysfunction of bladder, unspecified; R13.10 Dysphagia, unspecified; Z22.322 Carrier or suspected carrier of Methicillin resistant Staphylococcus aureus; B96.4 Proteus (mirabilis) (morganii) as the cause of diseases classified elsewhere; B95.2 Enterococcus as the cause of diseases classified elsewhere; Z16.21 Resistance to vancomycin; D64.9 Anemia, unspecified
CPT/HCPCS: 71045; 80048; 80053; 80170; 80202; 81001; 81003; 82043; 83605; 83735; 83935; 84100; 84145; 84155; 84295; 84300; 84443; 84484; 85025; 85610; 85730; 87040-91; 87070; 87081; 87086; 87400; 89220; 93005; 93306; 94640; 94664; 96374; 96375; 97161; 97166; 99285-25